=== PATIENT | male | born 1975 | race Caucasian/White ===

== ENCOUNTER 2022-08-22 14:53 | Emergency (ER) | payer OTHER ==
[~2022-08-22] VITALS: Ht 190.5 cm; Wt 133.6 kg
== END 2022-08-22 17:05 | disposition home or self-care (01) ==
LOC: ED 14:53
DX: S61.412A Laceration without foreign body of left hand, initial encounter (principal); W26.8XXA Contact with other sharp object(s), not elsewhere classified, initial encounter
CPT/HCPCS: 99282